=== PATIENT | female | born 1955 | race Caucasian/White ===

== ENCOUNTER 2016-10-15 08:17 | Outpatient (CLI) | payer MEDICARE, OTHER ==
[2015-07-05 10:28] VITALS: BP 150/76
== END 2016-10-15 08:20 ==
LOC: POD 08:17
PROVIDERS: ATTEND Podiatrist
DX: E11.9 Type 2 diabetes mellitus without complications (principal); B35.1 Tinea unguium; L60.0 Ingrowing nail; M79.674 Pain in right toe(s); M79.675 Pain in left toe(s)
CPT/HCPCS: 11721; G0463

== ENCOUNTER 2016-12-31 10:52 | Outpatient (CLI) | payer MEDICARE, OTHER ==
[2015-07-05 10:28] VITALS: BP 150/76
== END 2016-12-31 10:53 ==
LOC: POD 10:52
PROVIDERS: ATTEND Podiatrist Public Medicine
DX: E11.9 Type 2 diabetes mellitus without complications (principal); B35.1 Tinea unguium; L60.0 Ingrowing nail; M79.674 Pain in right toe(s); M79.675 Pain in left toe(s)
CPT/HCPCS: 11721; G0463

== ENCOUNTER 2017-04-15 10:03 | Outpatient (CLI) | payer MEDICARE, OTHER ==
[2015-07-05 10:28] VITALS: BP 150/76
== END 2017-04-15 10:04 ==
LOC: POD 10:03
PROVIDERS: ATTEND Podiatrist Public Medicine
DX: B35.1 Tinea unguium (principal); E11.9 Type 2 diabetes mellitus without complications; L60.0 Ingrowing nail; M79.674 Pain in right toe(s)
CPT/HCPCS: 11721; G0463

== ENCOUNTER 2017-07-15 09:40 | Outpatient (CLI) | payer MEDICARE, OTHER ==
[2015-07-05 10:28] VITALS: BP 150/76
== END 2017-07-15 09:50 ==
LOC: POD 09:40
PROVIDERS: ATTEND Podiatrist Public Medicine
DX: B35.1 Tinea unguium (principal); L60.0 Ingrowing nail; E11.9 Type 2 diabetes mellitus without complications; M79.674 Pain in right toe(s); M79.675 Pain in left toe(s)
CPT/HCPCS: 11721; G0463

== ENCOUNTER 2017-07-30 11:24 | Outpatient (CLI) | payer MEDICARE, OTHER ==
[2015-07-05 10:28] VITALS: BP 150/76
[2017-07-30 12:03] LABS: eGFR (African) > 60; eGFR (Non-African) > 60
== END 2017-07-30 11:25 ==
LOC: LAB 11:24
PROVIDERS: ATTEND Family Medicine
DX: E11.9 Type 2 diabetes mellitus without complications (principal)
CPT/HCPCS: 36415; 80053; 80061; 82043; 83036

== ENCOUNTER 2017-10-14 09:19 | Outpatient (CLI) | payer MEDICARE, OTHER ==
[2015-07-05 10:28] VITALS: BP 150/76
== END 2017-10-14 09:20 ==
LOC: POD 09:19
PROVIDERS: ATTEND Podiatrist Public Medicine
DX: B35.1 Tinea unguium (principal); E11.9 Type 2 diabetes mellitus without complications; L60.0 Ingrowing nail; M79.674 Pain in right toe(s); M79.675 Pain in left toe(s)
CPT/HCPCS: 11721; G0463

== ENCOUNTER 2017-11-02 11:01 | Outpatient (CLI) | payer MEDICARE, OTHER ==
[2015-07-05 10:28] VITALS: BP 150/76
== END 2017-11-02 11:02 ==
LOC: LAB 11:01
PROVIDERS: ATTEND Family Medicine
DX: E11.9 Type 2 diabetes mellitus without complications (principal)
CPT/HCPCS: 36415; 82043; 83036

== ENCOUNTER 2018-01-27 10:51 | Outpatient (CLI) | payer MEDICARE, OTHER ==
[2015-07-05 10:28] VITALS: BP 150/76
== END 2018-01-27 10:52 ==
LOC: POD 10:51
PROVIDERS: ATTEND Podiatrist Public Medicine
DX: B35.1 Tinea unguium (principal); E11.9 Type 2 diabetes mellitus without complications; L60.0 Ingrowing nail; M79.674 Pain in right toe(s); M79.675 Pain in left toe(s)
CPT/HCPCS: 11721; G0463

== ENCOUNTER 2018-02-01 08:42 | Outpatient (CLI) | payer MEDICARE, OTHER ==
[2015-07-05 10:28] VITALS: BP 150/76
== END 2018-02-01 08:43 ==
LOC: LAB 08:42
PROVIDERS: ATTEND Family Medicine
DX: E11.9 Type 2 diabetes mellitus without complications (principal)
CPT/HCPCS: 36415; 83036

== ENCOUNTER 2018-04-28 10:15 | Outpatient (CLI) | payer MEDICARE, OTHER ==
[2015-07-05 10:28] VITALS: BP 150/76
== END 2018-04-28 10:16 ==
LOC: POD 10:15
PROVIDERS: ATTEND Podiatrist Public Medicine
DX: B35.1 Tinea unguium (principal); E11.9 Type 2 diabetes mellitus without complications; L60.0 Ingrowing nail; M79.674 Pain in right toe(s); M79.675 Pain in left toe(s)
CPT/HCPCS: 11721; G0463

== ENCOUNTER 2018-05-25 09:42 | Outpatient (CLI) | payer MEDICARE, OTHER ==
[2015-07-05 10:28] VITALS: BP 150/76
--- NOTE | 2018-05-25 17:30 | Diagnostic Imaging Report ---
SHANTELL RODAS [facility] [address] [facility].[address] [id number] Report Submission Date: May 25, 2018 10:48:05 AM CDT Patient Study Name: MOOKIE DUMONT Date: May 25, 2018 10:03:35 AM CDT Modality Type: DX Gender: F Description: PELVIS : 59 Institution: [facility] Physician: SHANTELL RODAS Right hip History: Pain AP and frogleg lateral projections of the right hip demonstrate no osseous abnormality. There is no evidence for acute fracture or dislocation. Impression: No osseous abnormality. Electronically signed on May 25, 2018 10:48:05 AM CDT by: Teresita BEE
--- NOTE | 2018-05-26 12:37 | Diagnostic Imaging Report ---
SHANTELL RODAS [facility] [address] [facility] [address] [id number] Report Submission Date: May 26, 2018 10:43:02 AM CDT Patient Study Name: MOOKIE DUMONT Date: May 25, 2018 9:55:39 AM CDT Modality Type: DX Gender: F Description: LOWER EXTREMITY : 59 Institution: [facility] Physician: SHANTELL RODAS Examination: Plain film right knee History: RIGHT SIDE KNEE PAIN (Hx) Findings: 4 views of the right knee demonstrates osteopenia. Tibial spine and patellar spurring. Minimal medial joint space narrowing. No fracture. No dislocation. No joint effusion. No soft tissue irregularity. Impression: Osteopenia and degenerative changes. No acute appearing osseous abnormality Electronically signed on May 26, 2018 10:43:02 AM CDT by: Blayne BEE
== END 2018-05-25 09:44 ==
LOC: LAB 09:42
PROVIDERS: ATTEND Family Medicine
DX: E11.9 Type 2 diabetes mellitus without complications (principal); R29.898 Other symptoms and signs involving the musculoskeletal system; M25.551 Pain in right hip
CPT/HCPCS: 36415; 73502; 73562; 83036

== ENCOUNTER 2018-05-26 10:09 | Outpatient (CLI) | payer MEDICARE, OTHER ==
[2015-07-05 10:28] VITALS: BP 150/76
== END 2018-05-26 10:10 ==
LOC: RAD 10:09
PROVIDERS: ATTEND Family Medicine
DX: Z53.9 Procedure and treatment not carried out, unspecified reason (principal)

== ENCOUNTER 2018-11-19 09:47 | Outpatient (CLI) | payer MEDICARE, OTHER ==
[2015-07-05 10:28] VITALS: BP 150/76
[2018-11-19 10:39] LABS: eGFR (Non-African) > 60
== END 2018-11-19 09:55 ==
LOC: LAB 09:47
PROVIDERS: ATTEND Family Medicine
DX: E11.9 Type 2 diabetes mellitus without complications (principal)
CPT/HCPCS: 36415; 80053; 80061; 82043; 83036